=== PATIENT | female | born 1945 | race Caucasian/White ===

== ENCOUNTER 2024-06-12 12:53 | Outpatient (AMB) | payer MEDICARE, SELFPAY ==
[2024-06-12 13:01] VITALS: BP 122/68; PULSE 66; O2SAT 95; BMI 28.8
--- NOTE | 2024-06-12 13:01 | A.OFFVIS_ITS ---
Vital Signs 06/12/24 13:01 Height 5 ft 5 in Weight 173 lb 2 oz BMI 28.8 BP 122/68 Blood Pressure Location Lt brachial Position Sitting Pulse 66 Pulse Source Pulse Oximeter Pulse Oximetry (%) 95 Oxygen Delivery Method Room Air Intake Visit Reasons: Rheumatoid Arthritis Intake Note: Patient presents for follow up on RA today. Allergies naproxen [From Aleve] Allergy (Mild, Verified 06/12/24 13:03) Anaphylaxis HPI HPI Rheumatoid Arthritis: Details: She was admitted at [facility] in [place] for respiratory distress. She was treated with antibiotic and prednisone. She was initially on prednisone 80mg qd 1 week and now on 60mg. She is not having any joint symptoms. No joint swelling. [facility] Surgical History (Updated 06/12/24 @ 13:05 by Aury Tran CMA) History of lung biopsy Social History (Updated 06/12/24 @ 13:06 by Aury Tran CMA) Alcohol intake: current Patient Tobacco Use Status: Former Tobacco user Review of Systems Const All systems reviewed & are unremarkable except as noted in HPI and below Physical Exam Vital Signs: Last Vital Signs Pulse 66 06/12/24 13:01 BP 122/68 06/12/24 13:01 Pulse Ox 95 06/12/24 13:01 Oxygen Delivery Method Room Air 06/12/24 13:01 BMI result Body Mass Index 28.8 Const Other: General: Comfortable CVS: RRR Respiratory: clear to auscultation bilaterally. Good respiratory effort Skin: No lesions seen MSK: No tenderness of any joints. No synovitis. Good range of motion of upper extremities and lower extremities. Assessment & Plan Assessment & Plan (1) Rheumatoid arthritis: Comment: Inflammatory arthritis is in remission without DMARD therapy. She was previously treated on Simponi Aria, which was discontinued when patient developed lung cancer. She was on pembrolizumab but it has recently been held because of her developing a possible lung infection for which he was hospitalized. She still remains dyspneic on high dose prednisone. Code(s): M06.9 - Rheumatoid arthritis, unspecified Category: Medical Plan: We will monitor rheumatoid arthritis clinically She will follow-up with oncology team next month Return to clinic in 3 months [facility] Coding Level of Care Code Est Pt Level 4 (65754) Complex EM visit Add On G2211 Diagnoses Rheumatoid arthritis M06.9
--- OUTSIDE RECORDS SUMMARY | 2024-06-12 15:22 | XMS_ITS | Clinical Summary ---
Author Organization Unknown Care Team Providers Care Platen Drier Operator Name Role Phone MARGO BROWN OTHER, ROXY Unavailable Un available CLOWARNER FARM MACHINERY ASSEMBLER, SUDHAKAR Unavailable Unavailable PAT BARR, MOLINA Unavailable Unavailable Payers Payer Name Policy Type Policy Number Effective Date Expira tion Date MEDICARE.NGS.PDGM [id number] Problems Condition Name Condition Details Condition Category Status Onset Date Resolution Date Last Treatment Date Treating Clinician Comments ENCNTR FOR SURGICAL AFTCR FOLLOWING SURGERY ON THE RESP SYS Active 12-14 00:00: 00 PLEURAL EFFUSION, NOT ELSEWHERE CLASSIFIED Active 12-14 00:00: 00 OTHER 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 ACUTE COR PULMONALE Active 08-27 00:00: 00 CHRONIC OBSTRUCTIVE PULMONARY DISEASE, UNSPECIFIED Active 10-10 00:00: 00 RHEUMATOID ARTHRITIS, UNSPECIFIED Active 10-10 00:00: 00 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 TS Active 10-10 00:00: 00 HALFWAY (CURRENT) USE OF OPIATE ANALGESIC Active 05-29 00:00: 00 HALFWAY (CURRENT) USE OF INHALED STEROIDS Active 10-10 00:00: 00 HALFWAY (CURRENT) USE OF ANTIBIOTICS Active 10-18 00:00: 00 ACQUIRED ABSENCE OF RIGHT BREAST AND NIPPLE Active 10-10 00:00: 00 PERSONAL HISTORY OF MALIGNANT NEOPLASM OF BREAST Active 05-29 00:00: 00 PERSONAL HISTORY OF NICOTINE DEPENDENCE Active 10-10 00:00: 00 Allergies, Adverse Reactions, Alerts Allergy Name Allergy Type Status Severity Reaction(s) Onset Date Inactive Date Treating Clinician Comments NSAIDS Propensity to adverse reactions Active 2023-09 10:36:1 9 Medications Ordered Medication Name Filled Medication Name Start Date Stop Date Current Medication? Ordering Clinician Indication Dosage Frequency Signature (SIG) Comments Components triamcinolo ne acetonide 0.1 % topical cream 10-10 00:00: 00 Yes [id number] ITCH Per instruc tions NEEDED Per instructio ns NEEDED (route: topical) Med Classific ation: Dermatolo gical trazodone 50 mg tablet 09-28 00:00: 00 Yes [id number] INSOMNIA 1 tablet BEDTIME 1 tablet BEDTIME (route: oral) Med Classific ation: Central Nervous System Agents Xarelto 15 mg tablet 09-28 00:00: 00 10-18 00:00 :00 No [id number] Per instruc tions TWICE DAILY WITH MEALS FOR 21 DAYS Per instructio ns TWICE DAILY WITH MEALS FOR 21 DAYS (route: oral) Med Classific ation: Hematolog ical Agents Xarelto 20 mg tablet 09-27 00:00: 00 10-18 00:00 :00 No [id number] Per instruc tions DAILY AT Per instructio ns DAILY AT (route: oral) Med Classific ation: Hematolog ical Agents acetaminoph en 325 mg tablet 10-17 00:00: 00 Yes [id number] PAIN 2 tablet EVERY 6 HOURS 2 tablet EVERY 6 HOURS (route: oral) Med Classific ation: Analgesic , Anti-infl ammatory or Antipyret ic albuterol sulfate HFA 90 mcg/actuati on aerosol inhaler 10-08 00:00: 00 Yes [id number] WHEEZING 2 puff EVERY 6 HOURS 2 puff EVERY 6 HOURS (route: inhalation ) Med Classific ation: Respirato ry Therapy Agents fexofenadin e 180 mg tablet 10-18 00:00: 00 Yes [id number] ALLERGIES 1 tablet DAILY 1 tablet DAILY (route: oral) Med Classific ation: Respirato ry Therapy Agents furosemide 20 mg tablet 10-17 00:00: 00 10-30 23:59 :00 No [id number] DIURETIC 1 tablet DAILY 1 tablet DAILY (route: oral) Med Classific ation: Cardiovas cular Therapy Agents gabapentin 100 mg capsule 10-17 00:00: 00 10-30 23:59 :00 No [id number] NERVE PAIN 1 capsule 3 TIMES DAILY 1 capsule 3 TIMES DAILY (route: oral) Med Classific ation: Central Nervous System Agents levofloxaci n 750 mg tablet 10-14 00:00: 00 10-18 23:59 :00 No [id number] PREVENT INFECTION 1 tablet DAILY 1 tablet DAILY (route: oral) Med Classific ation: Anti-Infe ctive Agents levothyroxi ne 112 mcg capsule 10-16 00:00: 00 Yes [id number] HYPOTHYROID ISM 1 capsule EVERY AM 1 capsule EVERY AM (route: oral) Med Classific ation: Endocrine metoprolol succinate ER 100 mg tablet,exte nded release 24 hr 10-17 00:00: 00 Yes [id number] HTN 1 tablet DAILY 1 tablet DAILY (route: oral) Med Classific ation: Cardiovas cular Therapy Agents oxycodone 5 mg tablet 10-17 00:00: 00 Yes [id number] PAIN 1 tablet EVERY 4 HOURS 1 tablet EVERY 4 HOURS (route: oral) Med Classific ation: Analgesic , Anti-infl ammatory or Antipyret ic polyethylen e glycol 3350 17 gram/dose oral powder 10-17 00:00: 00 Yes [id number] CONSTIPATIO N 17 gram DAILY 17 gram DAILY (route: oral) Med Classific ation: Gastroint estinal Therapy Agents potassium chloride ER 10 mEq capsule,ext ended release 10-17 00:00: 00 10-30 23:59 :00 No [id number] SUPPLEMENT 1 capsule DAILY 1 capsule DAILY (route: oral) Med Classific ation: Electroly te Balance-N utritiona l Products pravastatin 40 mg tablet 10-19 00:00: 00 Yes [id number] CHOLESTEROL 1 tablet DAILY 1 tablet DAILY (route: oral) Med Classific ation: Cardiovas cular Therapy Agents Senna Lax 8.6 mg tablet 10-17 00:00: 00 Yes [id number] CONSTIPATIO N 2 tablet NEEDED 2 tablet NEEDED (route: oral) Med Classific ation: Gastroint estinal Therapy Agents Xarelto 15 mg tablet 10-19 00:00: 00 Yes [id number] PREVENT PE 1 tablet DAILY 1 tablet DAILY (route: oral) Med Classific ation: Hematolog ical Agents Vital Signs Vital Name Observation Time Observation Value Commen ts Temperature 2024-02-13 10:29:00.000 96.7 [degF] Temperature 2024-02-07 14:06:00.000 97.2 [degF] Temperature 2024-01-25 11:00:00.000 97.6 [degF] Temperature 2024-01-19 11:40:00.000 97.2 [degF] Temperature 2024-01-05 11:29:00.000 96.5 [degF] Temperature 2023-12-29 10:51:00.000 96.8 [degF] Temperature 2023-12-22 11:04:00.000 97.1 [degF] Pulse 2024-02-13 10:29:00.000 70 /min Pulse 2024-02-07 14:06:00.000 72 /min Pulse 2024-01-25 11:00:00.000 76 /min Pulse 2024-01-19 11:40:00.000 72 /min Pulse 2024-01-05 11:29:00.000 86 /min Pulse 2023-12-29 10:51:00.000 88 /min Pulse 2023-12-22 11:04:00.000 90 /min O2 Saturation (%) 2024-02-13 10:29:00.000 96 % O2 Saturation (%) 2024-02-07 14:06:00.000 98 % O2 Saturation (%) 2024-01-25 11:00:00.000 96 % O2 Saturation (%) 2024-01-19 11:40:00.000 98 % O2 Saturation (%) 2024-01-05 11:29:00.000 97 % O2 Saturation (%) 2023-12-29 10:51:00.000 97 % O2 Saturation (%) 2023-12-22 11:04:00.000 95 % Respirations 2024-02-13 10:29:00.000 18 /min Respirations 2024-02-07 14:06:00.000 18 /min Respirations 2024-01-25 11:00:00.000 18 /min Respirations 2024-01-19 11:40:00.000 18 /min Respirations 2024-01-05 11:29:00.000 18 /min Respirations 2023-12-29 10:51:00.000 18 /min Respirations 2023-12-22 11:04:00.000 18 /min Systolic Blood Pressure 2024-02-13 10:29:00.000 118 mm [Hg] Systolic Blood Pressure 2024-02-07 14:06:00.000 128 mm [Hg] Systolic Blood Pressure 2024-01-25 11:00:00.000 120 mm [Hg] Systolic Blood Pressure 2024-01-19 11:40:00.000 118 mm [Hg] Systolic Blood Pressure 2024-01-05 11:29:00.000 112 mm [Hg] Systolic Blood Pressure 2023-12-29 10:51:00.000 118 mm [Hg] Systolic Blood Pressure 2023-12-22 11:04:00.000 122 mm [Hg] Diastolic Blood Pressure 2024-02-13 10:29:00.000 64 mm [Hg] Diastolic Blood Pressure 2024-02-07 14:06:00.000 68 mm [Hg] Diastolic Blood Pressure 2024-01-25 11:00:00.000 62 mm [Hg] Diastolic Blood Pressure 2024-01-19 11:40:00.000 62 mm [Hg] Diastolic Blood Pressure 2024-01-05 11:29:00.000 64 mm [Hg] Diastolic Blood Pressure 2023-12-29 10:51:00.000 64 mm [Hg] Diastolic Blood Pressure 2023-12-22 11:04:00.000 80 mm [Hg] Plan of Treatment Planned Activity Planned Date Details Comments Future Scheduled Test RN TO OBSE RVE, ASSESS, EVALUATE, AND DEVELOP AN INDIVIDUALIZED PLAN OF CARE. AGENCY MAY ACCEPT ORDERS FROM CONSULTING PHYSICIANS. REGISTERED NURSE TO OBSERVE AND ASSESS/LICENSED PRACTICAL NURSE TO OBSERVE FOR RISK FOR FALLS AND INSTRUCT IN FALL PREVENTION, HOME SAFETY, MEDICATION MANAGEMENT, INFECTION PREVENTION, AND NUTRITION MANAGEMENT. REGISTERED NURSE/LICENSED PRACTICAL NURSE MAY PERFORM O2 SATURATION LEVEL ON ADMISSION AND FOR RN TO ASSESS/FARM MACHINERY ASSEMBLER TO OBSERVE PATIENT, WITH NOTIFICATION TO THE PHYSICIAN IF SATURATION IS 90% IN THE ABSENCE OF MORE SPECIFIC PARAMETERS FROM THE PHYSICIAN. AGENCY MAY PERFORM A RESUMPTION OF CARE VISIT FOLLOWING ANY HOSPITAL ADMISSION. REGISTERED NURSE/LICENSED PRACTICAL NURSE TO MONITOR CO-MORBID CONDITIONS LISTED ON THE PLAN OF CARE AND ANY NEW CONDITIONS THAT PRESENT THEMSELVES DURING THIS EPISODE TO IDENTIFY CHANGES AND INTERVENE TO MINIMIZE COMPLICATIONS. [code = RN TO OBSERVE, ASSESS, EVALUATE, AND DEVELOP AN INDIVIDUALIZED PLAN OF CARE. AGENCY MAY ACCEPT ORDERS FROM CONSULTING PHYSICIANS. REGISTERED NURSE TO OBSERVE AND ASSESS/LICENSED PRACTICAL NURSE TO OBSERVE FOR RISK FOR FALLS AND INSTRUCT IN FALL PREVENTION, HOME SAFETY, MEDICATION MANAGEMENT, INFECTION PREVENTION, AND NUTRITION MANAGEMENT. REGISTERED NURSE/LICENSED PRACTICAL NURSE MAY PERFORM O2 SATURATION LEVEL ON ADMISSION AND FOR RN TO ASSESS/FARM MACHINERY ASSEMBLER TO OBSERVE PATIENT, WITH NOTIFICATION TO THE PHYSICIAN IF SATURATION IS 90% IN THE ABSENCE OF MORE SPECIFIC PARAMETERS FROM THE PHYSICIAN. AGENCY MAY PERFORM A RESUMPTION OF CARE VISIT FOLLOWING ANY HOSPITAL ADMISSION. REGISTERED NURSE/LICENSED PRACTICAL NURSE TO MONITOR CO-MORBID CONDITIONS LISTED ON THE PLAN OF CARE AND ANY NEW CONDITIONS THAT PRESENT THEMSELVES DURING THIS EPISODE TO IDENTIFY CHANGES AND INTERVENE TO MINIMIZE COMPLICATIONS.] Future Scheduled Test RISK FOR H OSPITALIZATION; REGISTERED NURSE TO ASSESS /TEACH, LICENSED PRACTICAL NURSE TO OBSERVE/TEACH PATIENT/CAREGIVER ON RISK FOR HOSPITALIZATION/EMERGENCY ROOM VISITS, TEACH SIGNS AND SYMPTOMS THAT PUT PATIENT AT RISK, WHEN TO NOTIFY NURSE/PHYSICIAN OF COMPLICATIONS/DECLINE, AND WHEN TO CALL 911. [code = RISK FOR HOSPITALIZATION; REGISTERED NURSE TO ASSESS /TEACH, LICENSED PRACTICAL NURSE TO OBSERVE/TEACH PATIENT/CAREGIVER ON RISK FOR HOSPITALIZATION/EMERGENCY ROOM VISITS, TEACH SIGNS AND SYMPTOMS THAT PUT PATIENT AT RISK, WHEN TO NOTIFY NURSE/PHYSICIAN OF COMPLICATIONS/DECLINE, AND WHEN TO CALL 911.] Future Scheduled Test MEDICATION MANAGEMENT; REGISTERED NURSE/LICENSED PRACTICAL NURSE TO REVIEW MEDICATIONS FOR INTERACTIONS, EFFECTIVENESS OF DRUG THERAPY, AND SIGNS/SYMPTOMS OF ADVERSE REACTIONS. MAY INSTRUCT AND REINFORCE MEDICATION TEACHING RELATED TO THE USE OF MEDICATIONS, DOSAGE, FREQUENCY, PURPOSE, SIDE EFFECTS, AND TO REPORT COMPLICATIONS. [code = MEDICATION MANAGEMENT; REGISTERED NURSE/LICENSED PRACTICAL NURSE TO REVIEW MEDICATIONS FOR INTERACTIONS, EFFECTIVENESS OF DRUG THERAPY, AND SIGNS/SYMPTOMS OF ADVERSE REACTIONS. MAY INSTRUCT AND REINFORCE MEDICATION TEACHING RELATED TO THE USE OF MEDICATIONS, DOSAGE, FREQUENCY, PURPOSE, SIDE EFFECTS, AND TO REPORT COMPLICATIONS.] Future Scheduled Test RESPIRATOR Y SYSTEM MANAGEMENT; REGISTERED NURSE TO ASSESS AND TEACH/LICENSED PRACTICAL NURSE TO OBSERVE AND TEACH RELATED TO ALTERED RESPIRATORY STATUS TO MINIMIZE COMPLICATIONS AND REDUCE HOSPITALIZATION. [code = RESPIRATORY SYSTEM MANAGEMENT; REGISTERED NURSE TO ASSESS AND TEACH/LICENSED PRACTICAL NURSE TO OBSERVE AND TEACH RELATED TO ALTERED RESPIRATORY STATUS TO MINIMIZE COMPLICATIONS AND REDUCE HOSPITALIZATION. ] Future Scheduled Test REGISTERED NURSE/LICENSED PRACTICAL NURSE TO PERFORM AND TEACH PATIENT/CAREGIVER SELF-MANAGEMENT OF THE PLEUREX PLEURAL DRAINAGE SYSTEM ON THE RIGHT CHEST TO INCLUDE: DRAIN CATHETER EVERY WEEK USING THE PLEUREX DRAINAGE PROCEDURE, INSPECT CATHETER EVERY DAY, CHANGE DRESSING EVERY WEEK. CLEAN AREA WITH CHLOROPREP. COVER WITH FOAM, GAUZE, SECURE WITH TRANSPARENT DRESSING. MAY CHANGE DRESSING PRN IF SOILED OR DISLODGED. REGISTERED NURSE/LICENSED PRACTICAL NURSE TEACH PATIENT/CAREGIVER SIGNS AND SYMPTOMS TO REPORT TO MINIMIZE THE RISK OF COMPLICATIONS. [code = REGISTERED NURSE/LICENSED PRACTICAL NURSE TO PERFORM AND TEACH PATIENT/CAREGIVER SELF-MANAGEMENT OF THE PLEUREX PLEURAL DRAINAGE SYSTEM ON THE RIGHT CHEST TO INCLUDE: DRAIN CATHETER EVERY WEEK USING THE PLEUREX DRAINAGE PROCEDURE, INSPECT CATHETER EVERY DAY, CHANGE DRESSING EVERY WEEK. CLEAN AREA WITH CHLOROPREP. COVER WITH FOAM, GAUZE, SECURE WITH TRANSPARENT DRESSING. MAY CHANGE DRESSING PRN IF SOILED OR DISLODGED. REGISTERED NURSE/LICENSED PRACTICAL NURSE TEACH PATIENT/CAREGIVER SIGNS AND SYMPTOMS TO REPORT TO MINIMIZE THE RISK OF COMPLICATIONS.] Future Scheduled Test PATIENT RE CERTIFIED FOR ONGOING PLEUREX DRAINING TO EXPAND LUNG. PATIENT HAS BEGUN CHEMOTHERAPY AND DRAINAGE AMOUNT HAS NOT CHANGED. PATIENT HAS THE POTENTIAL FOR A PORT PLACEMENT, SOON SHE STATES. SHE HAS NO SCHEDULED APPT. TODAY PLEUREX DRAINED 2CC OF PALE YELLOW FLUID. PATIENT STATES SHE IS DISGUSTED AND WANTS TUBE OUT. I'M GOING TO ASK THEM TO REMOVE IT AT MY NEXT APPT. PATIENT HAS BEGUN TO FEEL SOME OF THE FATIGUE FROM THE CHEMOTHERAPY. I AM SO TIRED, I HAVE NO ENERGY AND I'M NOT REALLY HUNGRY. PATIENT EDUCATED TO REST, WALK ABOUT INSIDE OF HOME AND CHOOSE THE PROTEIN RICH FOOD ITEM AND EAT IT AT LEAST 3X A DAY OR SEVERAL SMALL PROTEIN SNACKS THROUGHOUT DAY TO PROMOTE AND MAINTAIN STRENGTH. PATIENT VERBALIZED UNDERSTANDING AND AGREED TO DO SO. DR. MARTINEZ WAS CALLED, SPOKE TO JULIA, RECERTIFICATION DECISION DISCUSSED. DOCTOR IS IN AGREEMENT WITH RECERTIFICATION. PATIENT IS HOMEBOUND DUE TO IMPAIRED MOBILITY AND ENDURANCE. PATIENT REQUIRES AN ASSIST OF ANOTHER AND OFTEN A DEVICE TO WALK AND TO ENSURE SAFETY. [code = PATIENT RECERTIFIED FOR ONGOING PLEUREX DRAINING TO EXPAND LUNG. PATIENT HAS BEGUN CHEMOTHERAPY AND DRAINAGE AMOUNT HAS NOT CHANGED. PATIENT HAS THE POTENTIAL FOR A PORT PLACEMENT, SOON SHE STATES. SHE HAS NO SCHEDULED APPT. TODAY PLEUREX DRAINED 2CC OF PALE YELLOW FLUID. PATIENT STATES SHE IS DISGUSTED AND WANTS TUBE OUT. I'M GOING TO ASK THEM TO REMOVE IT AT MY NEXT APPT. PATIENT HAS BEGUN TO FEEL SOME OF THE FATIGUE FROM THE CHEMOTHERAPY. I AM SO TIRED, I HAVE NO ENERGY AND I'M NOT REALLY HUNGRY. PATIENT EDUCATED TO REST, WALK ABOUT INSIDE OF HOME AND CHOOSE THE PROTEIN RICH FOOD ITEM AND EAT IT AT LEAST 3X A DAY OR SEVERAL SMALL PROTEIN SNACKS THROUGHOUT DAY TO PROMOTE AND MAINTAIN STRENGTH. PATIENT VERBALIZED UNDERSTANDING AND AGREED TO DO SO. DR. MARTINEZ WAS CALLED, SPOKE TO JULIA, RECERTIFICATION DECISION DISCUSSED. DOCTOR IS IN AGREEMENT WITH RECERTIFICATION. PATIENT IS HOMEBOUND DUE TO IMPAIRED MOBILITY AND ENDURANCE. PATIENT REQUIRES AN ASSIST OF ANOTHER AND OFTEN A DEVICE TO WALK AND TO ENSURE SAFETY. ] Goal 2023-12-15 Patient Goal - BE BETTER Goal 2024-02-13 Patient Goal - BE BETTER Goal Provider Goal - A PLAN OF CARE WILL BE ESTABLISHED THAT MEETS THE PATIENTS NEEDS. PATIENT WILL DEMONSTRATE OXYGEN SATURATION WITHIN NORMAL LIMITS OR PATIENTS OPTIMAL LEVEL ESTABLISHED BY THE PHYSICIAN THROUGHOUT CARE. CHANGES TO CO-MORBID CONDITIONS AND ANY NEW CONDITIONS WILL BE IDENTIFIED AND REPORTED TO THE PHYSICIAN. Goal Provider Goal - PATIENT/CAREGIVER WILL VERBALIZE UNDERSTANDING OF SIGNS AND SYMPTOMS THAT PUT THE PATIENT AT RISK FOR HOSPITALIZATION /EMERGENCY ROOM VISITS, WHEN TO NOTIFY NURSE/PHYSICIAN OF COMPLICATIONS/DECLINE AND WHEN TO CALL 911. Goal Provider Goal - PATIENT/CAREGIVER TO VERBALIZE, AND CONSISTENTLY DEMONSTRATE EFFECTIVE, SAFE MANAGEMENT OF MEDICATION INCLUDING KNOWLEDGE OF EFFECTIVENESS, POTENTIAL SIDE EFFECTS AND DRUG REACTIONS AND WHEN TO CONTACT THE APPROPRIATE CARE PROVIDER. PATIENT/CAREGIVER WILL BE ABLE TO VERBALIZE UNDERSTANDING OF MEDICATION REGIMEN AND ACCURATELY TAKE MEDICATIONS PRESCRIBED WITHOUT ADVERSE EFFECTS BY 02/15/24. Goal Provider Goal - PATIENT / CAREGIVER WILL VERBALIZE/DEMONSTRATE UNDERSTANDING OF MEASURES TO MANAGE ALTERED RESPIRATORY STATUS BY END OF EPISODE. Goal Provider Goal - PATIENT / CAREGIVER WILL VERBALIZE/DEMONSTRATE ABILITY TO CARE FOR PLEURAL DRAINAGE SYSTEM BY 02/15/24 . Reason for Visit MINIMUM ASSIST WITH TRANSFER/AMBULATION/ADLS Encounters Start Date/Time End Date/Time Encounter Type Admission Type Attending Clinicians Care Facility Care Department Encounter ID Discharge Date Discharge Status Discharge Condition Discharge Reason Percent Goals Met 2023-10-19 00:00:00 2024-02-13 00:00:00 Outpatient RECERTIFIC [facility] [id number] 2024-02-13 00:00:00 DISCHARGE TO HOME OR SELF CARE MINIMUM ASSIST WITH TRANSFER/A MBULATION/ ADLS HH OR [facility]- GOALS MET 100.00
== END 2024-06-12 13:30 | disposition home or self-care (01) ==
PROVIDERS: PCP Physician Assistant; Visit Provider Internal Medicine Rheumatology
DX: M06.9 Rheumatoid arthritis, unspecified (principal)
CPT/HCPCS: 99214; G2211

== ENCOUNTER → 2024-06-12 12:53 | Outpatient (BNVA) | payer MEDICARE, SELFPAY | PROVIDERS: PCP Physician Assistant; Visit Provider Internal Medicine Rheumatology | DX: M06.9 Rheumatoid arthritis, unspecified (principal) | CPT/HCPCS: 99212 ==